=== PATIENT | male | born 1990 | race Caucasian/White ===

== ENCOUNTER 2017-07-30 21:58 | Emergency (ER) | payer MEDICAID, OTHER ==
[~2017-07-30] VITALS: Ht 182.9 cm; Wt 74.0 kg
[~2017-07-30 21:58] MED LIST: CLIN-79 PO; CLIN-80 PO
[2017-07-30 22:43] VITALS: BP 113/64
[2017-07-31] MEDS ORDERED: CLIN-80 PO (02:34)
[2017-07-31] MEDS ORDERED: clindamycin 150mg capsule PO ONE (02:35)
== END 2017-07-31 02:45 | disposition home or self-care (01) ==
LOC: ER 21:59
DX: K04.7 Periapical abscess without sinus (principal); F17.200 Nicotine dependence, unspecified, uncomplicated; F12.10 Cannabis abuse, uncomplicated; Z88.2 Allergy status to sulfonamides; Z88.1 Allergy status to other antibiotic agents
CPT/HCPCS: 99283

== ENCOUNTER 2018-01-09 22:15 | Emergency (ER) | payer OTHER ==
[~2018-01-09] VITALS: Ht 182.9 cm; Wt 76.5 kg
[2018-01-09 22:19] VITALS: BP 118/63
== END 2018-01-09 23:06 | disposition home or self-care (01) ==
LOC: ER 22:15
DX: R22.0 Localized swelling, mass and lump, head (principal); F12.90 Cannabis use, unspecified, uncomplicated; Z88.2 Allergy status to sulfonamides; Z88.1 Allergy status to other antibiotic agents
CPT/HCPCS: 99281

== ENCOUNTER 2018-07-05 22:56 | Emergency (ER) | payer MEDICAID ==
[~2018-07-05] VITALS: Ht 182.9 cm; Wt 74.5 kg
[2018-07-05 23:17] VITALS: BP 106/62
== END 2018-07-06 00:15 | disposition home or self-care (01) ==
LOC: ER 22:57
DX: K08.89 Other specified disorders of teeth and supporting structures (principal); F12.90 Cannabis use, unspecified, uncomplicated; Z88.2 Allergy status to sulfonamides; Z88.1 Allergy status to other antibiotic agents
CPT/HCPCS: 99281

== ENCOUNTER 2024-06-30 17:53 | Emergency (ER) | payer MEDICAID ==
[~2024-06-30] VITALS: Ht 182.9 cm; Wt 88.6 kg
[2024-06-30 18:12] VITALS: BP 135/69; PULSE 58; RESP 15; O2SAT 98
[2024-06-30] MEDS ORDERED: CLIN-97 PO (18:41)
[2024-06-30] MEDS: clindamycin 150mg capsule PO ONE (18:52)
[2024-06-30 18:54] VITALS: TEMP 98
== END 2024-06-30 19:13 | disposition home or self-care (01) ==
LOC: ER 17:54
DX: K02.9 Dental caries, unspecified (principal); K04.7 Periapical abscess without sinus; F12.90 Cannabis use, unspecified, uncomplicated; Z88.2 Allergy status to sulfonamides; Z88.1 Allergy status to other antibiotic agents
CPT/HCPCS: 99283